=== PATIENT | male | born 1940 | race Caucasian/White ===

== ENCOUNTER 2017-11-03 20:33 | Emergency (ER) | payer MEDICARE ==
[2017-11-03 22:53] LABS: Bilirubin Negative (Negative); Blood, Urine Trace (Negative); Clarity CLEAR (Clear); Glucose, Urine (Dipstick) Negative (Negative); Leukocyte Negative (Negative); Nitrite Negative (Negative); Protein, Urine (Dipstick) 100 mg/dL (Neg-Trace); Specific Gravity, Urine 1.012 (1.002-1.036); Urobilinogen 0.2 mg/dL (0.2-1.0)
[2017-11-03 22:54] LABS: Bacteria/HPF None Seen HPF (None Seen); Hyaline Casts/LPF 0-3 HYALINE CAST LPF (0-3 Hyaline); RBC/HPF 0-3 HPF (0-3); Squamous Epithelial 0-3 HPF (0-3)
--- NOTE | 2017-11-03 23:40 | CT ---
CT CHEST WITHOUT CONTRAST: 11/03/17 Multiple axial tomograms obtained through the chest without IV enhancement. HISTORY: Fall earlier today. Chest pain. FINDINGS: The lungs are well aerated and are clear. No evidence of pneumothorax, effusion, or infiltrate. There is cardiomegaly. Mild vascular engorgement. Bony thorax appears intact. There are degenerative toussaint es in the spine without evidence of vertebral body compression or fracture. Severe degenerative changes at the left shoulder noted with severe subchondral cystic changes and hyp ertrophic changes at this joint. There are also extraosseous soft tissue calcifications surrounding t his joint. IMPRESSION: No acute chest finding. There are degenerative changes in the spine and left shoulder as described. POS: [facility]
--- NOTE | 2017-11-03 23:43 | CT ---
CT PELVIS: 11/03/17 Multiple axial tomograms obtained through the pelvis with multiplanar reconstruction. HISTORY: Fall. Pelvic pain. FINDINGS: There are bilateral hip prostheses. The bones are osteopenic. There is no evidence of acute pelvic or hip fracture identified. No soft tissue abnormality. Dialysis catheter is coiled within the lower ab domen. There is severe degenerative changes in the lower lumbar spine and lumbosacral region with grade I sp ondylolisthesis at L5-S1 and posterior spondylolysis at this level. IMPRESSION: Degenerative changes and postoperative changes as described above. No acute fracture identified. POS: [facility]
[2017-11-04] MEDS ORDERED: traMADol HCl 50 MG TAB ONE (00:09)
[2017-11-04] MEDS ORDERED: Ciprofloxacin 500 MG TAB ONE (00:46)
[2017-11-04 01:13] LABS: #Eosinphils 0.2 thou/uL (0.0-0.7); #Lymphocytes 0.8 thou/uL (1.20-3.40); #Monocytes 0.7 thou/uL (0.11-0.59); #Neutrophils 4.3 thou/uL (1.40-6.50); %Basophils 0.2 % (0.0-1.0); %Eosinophils 3.4 % (0.0-10.0); %Lymphocytes 12.7 % (21.0-51.0); %Monocytes 11.9 % (0.0-10.0); %Neutrophils 71.8 % (42.0-75.0); Hemoglobin 9.2 g/dL (14.0-18.0); Mean Corpuscular HGB CONC 32.8 g/dL (32.0-36.0); Mean Corpuscular Hemoglobin 31.8 pg (27.0-31.0); Mean Corpuscular Volume 96.8 fl (80.0-94.0); Mean Platelet Volume 9.8 fL (7.4-10.4); Platelet Count 130 thou/uL (130-400); RBC Distribution Width 15.7 % (11.5-14.5); Red Blood Cell (RBC) Count 2.89 mill/uL (4.70-6.10)
[2017-11-04 01:33] LABS: ALT (SGPT) Less than 7 U/L (8-55); AST (SGOT) 11 U/L (5-34); Albumin 3.8 g/dL (3.4-4.8); Alkaline Phosphatase 84 U/L (40-150); Anion Gap 16 mmol/L (10-20); BUN (Urea Nitrogen) 44 mg/dL (8.4-25.7); Bilirubin, Total 0.6 mg/dL (0.2-1.2); Calc. Creatinine Clearance 0 mL/min (70-130); Calcium 8.6 mg/dL (7.8-10.44); Carbon Dioxide 30 mmol/L (23-31); Chloride 100 mmol/L (98-107); Estimated GFR-MDRD 12; Globulin 2.4 g/dL (2.4-3.5); Glucose 76 mg/dL (83-110); Protein, Total 6.2 g/dL (5.8-8.1); Sodium 142 mmol/L (136-145)
== END 2017-11-04 03:30 ==
LOC: ERS 20:33
DX: S00.83XA Contusion of other part of head, initial encounter (principal); F32.9 Major depressive disorder, single episode, unspecified; N18.6 End stage renal disease; G20 Parkinson's disease; M43.10 Spondylolisthesis, site unspecified; Z91.81 History of falling; Z99.2 Dependence on renal dialysis; W19.XXXA Unspecified fall, initial encounter
CPT/HCPCS: 36415; 71250; 72192; 80053; 81003; 81015; 85025; 87086; 93005

== ENCOUNTER 2017-11-06 11:02 | Emergency (ER) | payer MEDICARE ==
[2017-11-06] MEDS ORDERED: Lidocaine 1% w/Epinephrine 1:100K 20 ML VIAL ONE (13:01)
[2017-11-06 13:20] LABS: #Eosinphils 0.2 thou/uL (0.0-0.7); #Lymphocytes 0.7 thou/uL (1.20-3.40); #Monocytes 0.7 thou/uL (0.11-0.59); #Neutrophils 4.3 thou/uL (1.40-6.50); %Eosinophils 3.7 % (0.0-10.0); %Lymphocytes 11.2 % (21.0-51.0); %Monocytes 11.7 % (0.0-10.0); %Neutrophils 73.4 % (42.0-75.0); Hemoglobin 7.5 g/dL (14.0-18.0); Mean Corpuscular HGB CONC 31.4 g/dL (32.0-36.0); Mean Corpuscular Hemoglobin 31.2 pg (27.0-31.0); Mean Corpuscular Volume 99.3 fl (80.0-94.0); Mean Platelet Volume 9.5 fL (7.4-10.4); Platelet Count 112 thou/uL (130-400); RBC Distribution Width 15.5 % (11.5-14.5); White Blood Cell (WBC) Count 5.8 thou/uL (4.8-10.8)
--- NOTE | 2017-11-06 13:40 | RAD ---
AP RADIOGRAPH OF PELVIS: Date: 11/06/17 HISTORY: Post fall today. This is the 6th time patient has fallen this month. 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 The distal portions of each femoral component are not image d on this exam. No hardware complication is seen on this exam. No fracture or dislocation is apprecia sanjeev. A radiopaque catheter overlies the pelvis, probably related to a peritoneal dialysis shunt. IMPRESSION: Bilateral total hip prosthesis without an acute osseous abnormality seen involving the pelvis. POS: [facility]
[2017-11-06 13:42] LABS: ALT (SGPT) Less than 7 U/L (8-55); AST (SGOT) 12 U/L (5-34); Albumin 3.4 g/dL (3.4-4.8); Alkaline Phosphatase 82 U/L (40-150); Anion Gap 12 mmol/L (10-20); BUN (Urea Nitrogen) 53 mg/dL (8.4-25.7); Bilirubin, Total 0.5 mg/dL (0.2-1.2); Calc. Creatinine Clearance 0 mL/min (70-130); Calcium 8.2 mg/dL (7.8-10.44); Carbon Dioxide 28 mmol/L (23-31); Chloride 100 mmol/L (98-107); Estimated GFR-MDRD 11; Globulin 2.1 g/dL (2.4-3.5); Glucose 87 mg/dL (83-110); Magnesium 2.2 mg/dL (1.6-2.6); Potassium 4.3 mmol/L (3.5-5.1); Protein, Total 5.5 g/dL (5.8-8.1); Sodium 136 mmol/L (136-145); Troponin I 0.024 ng/mL (< 0.028)
--- NOTE | 2017-11-06 13:43 | RAD ---
RADIOGRAPH CHEST 1 VIEW: Date: 11/06/17 Time: 1142 HOURS HISTORY: 77-year-old male status post acute fall resulting in left rib pain. COMPARISON: No prior chest radiographs. FINDINGS: This is a supine view, which would be insensitive for pneumothorax detection. There is a right healthcare administration intern al jugular double lumen dialysis catheter with distal tip overlying the right atrium. There lungs are hypoinflated. No gross consolidation or pulmonary edema identified. Ectasia and tortuous of the thor acic aorta. Cardiomegaly. Very severe DJD of left shoulder. IMPRESSION: 1. No acute findings. 2. 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 3. Right-sided dialysis catheter. 4. Hypoinflated lungs, making this a limited study. TITUS [] POS: [facility]
[2017-11-06 13:50] LABS: CKMB 7.4 ng/mL (0-6.6)
--- NOTE | 2017-11-06 13:50 | CT ---
CT BRAIN NONCONTRAST: HISTORY: 77-year-old male status post acute head trauma from fall. FINDINGS: There is no midline shift or any other mass effect. There is no evidence of acute intracranial hemor rhage, large cortical infarct, obstructive hydrocephalus, or extraaxial fluid collection. The calvar ium is intact. 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 A 1 cm hyperdense soft tissue density mass in the left anterior parasagittal frontal scalp. It is uncertain whether this represents a small acute scalp con tusion or a chronic subcutaneous lesion. High density fluid level in the sphenoid sinus which could r epresent blood. IMPRESSION: No acute intracranial findings. jn [] POS: [facility]
--- NOTE | 2017-11-06 14:00 | CT ---
CT CERVICAL SPINE NONCONTRAST: Date: 11/06/17 HISTORY: 77-year-old male status post acute cervical trauma from fall. FINDINGS: There are very severe degenerative disc changes at C2-3, C3-4, C4-5, C6-7, and T1-2; and especially a t the right atlantoaxial joint. These severe degenerative changes at the right atlantoaxial joint, pl us the patient motion artifact at the cervicothoracic junction, could result in a missed acute fractu re. No definite acute fracture is identified. There are moderate to severe degenerative changes at th e contralateral left atlantoaxial joint. There are severe degenerative facet changes at multiple leve ls bilaterally, especially the left upper and mid cervical spine. There is ankylosis of the C7 and T1 vertebral bodies and facet joints. The ankylosis stabilizes a Grade II anterolisthesis of C7 on T1. There is multilevel high grade central spinal canal stenosis and high grade bilateral neural foramina l stenosis. There are multiple bilateral thyroid nodules, right larger than left. IMPRESSION: 1. No definite acute, traumatic fracture identified. 2. Very severe cervical spondylosis. 3. Chronic Grade 2 spondylolisthesis at C7-T1, stabilized by ankylosis. TITUS Joens POS: [facility]
== END 2017-11-06 15:06 ==
LOC: ERS 11:02
DX: S51.812A Laceration without foreign body of left forearm, initial encounter (principal); S61.512A Laceration without foreign body of left wrist, initial encounter; S00.03XA Contusion of scalp, initial encounter; R29.6 Repeated falls; F32.9 Major depressive disorder, single episode, unspecified; N18.6 End stage renal disease; Z99.2 Dependence on renal dialysis; W17.89XA Other fall from one level to another, initial encounter
CPT/HCPCS: 12004; 36415; 70450; 71045; 72125; 72170; 80053; 82553; 83735; 84484; 85025; J2001

== ENCOUNTER 2022-12-15 11:30 | Inpatient (IN) | payer MEDICARE ==
[2022-12-15 12:30] LABS: #Eosinphils 0.1 thou/uL (0.0-0.7); #Lymphocytes 0.8 thou/uL (1.20-3.40); #Monocytes 0.6 thou/uL (0.11-0.59); #Neutrophils 3.7 thou/uL (1.40-6.50); %Basophils 0.2 % (0.0-1.0); %Eosinophils 1.4 % (0.0-10.0); %Lymphocytes 15.5 % (21.0-51.0); %Monocytes 11.3 % (0.0-10.0); %Neutrophils 71.6 % (42.0-75.0); Hemoglobin 7.3 g/dL (14.0-18.0); Mean Corpuscular Hemoglobin 36.5 pg (27.0-31.0); Platelet Count 134 10x3/uL (130-400); RBC Distribution Width 16.5 % (11.5-14.5); White Blood Cell (WBC) Count 5.2 10x3/uL (4.8-10.8)
[2022-12-15] MEDS ORDERED: Cefepime 2 GM VIAL ONE (12:52)
[2022-12-15 12:58] LABS: ALT (SGPT) Less than 7 U/L (8-55); AST (SGOT) 13 U/L (5-34); Albumin 2.9 g/dL (3.4-4.8); Alkaline Phosphatase 94 U/L (40-110); Anion Gap 16 mmol/L (10-20); BUN (Urea Nitrogen) 27 mg/dL (8.4-25.7); Bilirubin, Total 0.5 mg/dL (0.2-1.2); Calc. Creatinine Clearance 0 mL/min (70-130); Calcium 9.2 mg/dL (7.8-10.44); Carbon Dioxide 30 mmol/L (23-31); Chloride 99 mmol/L (98-107); Estimated GFR 15; Globulin 2.5 g/dL (2.4-3.5); Glucose 101 mg/dL (83-110); Potassium 3.7 mmol/L (3.5-5.1); Protein, Total 5.4 g/dL (5.8-8.1); Sodium 141 mmol/L (136-145)
[2022-12-15] MEDS ORDERED: Acetaminophen 325 MG TAB PO PRN (13:16)
[2022-12-15] MEDS ORDERED: Ondansetron ODT 4 MG TAB PO PRN (13:16)
[2022-12-15] MEDS ORDERED: Acetaminophen 650 MG Suppository PR PRN (13:16)
[2022-12-15 13:22] LABS: Actual Bicarbonate (HCO3v) 34 mEq/L (22-28); Base Excess 9.6 mEq/L (-2.0 to +3.0); Calcium, Ionized (venous) 1.08 mmol/L (1.16-1.32); Chloride (VBG) 97 mmol/L (98-106); Potassium (VBG) 3.68 mmol/L (3.70-5.30); pH (venous) 7.49 (7.32-7.43)
[2022-12-15] MEDS ORDERED: Vancomycin 1 GM/200 ML (FROZEN) BAG ONE (13:45)
[2022-12-15 14:07] LABS: CKMB 3.6 ng/mL (0-6.6)
[2022-12-15 14:29] LABS: SARS-CoV-2 NAA Rapid Test Not Detected (NotDetected)
[2022-12-15] MEDS ORDERED: Heparin 5,000 UNITS/ML VIAL SC SCH (15:00)
[2022-12-15 15:07] LABS: Iron 47 ug/dL (65-175); Iron Binding Capacity, Total 154 mcg/dL (261-462)
[2022-12-15 16:28] VITALS: BMI 30.7
[2022-12-15] MEDS ORDERED: EPOETIN ALFA-EPBX (ESRD) 10,000 UNIT/ML VIAL SC SCH (19:30)
[2022-12-15] MEDS: Heparin 5,000 UNITS/ML VIAL SC SCH (20:39)
[2022-12-15] MEDS: cefTRIAXone\\ROCEPHIN 1 GM in Sodium Chloride 0.9% 100 ML IVPB SCH (20:39)
[2022-12-16 05:02] LABS: #Eosinphils 0.1 thou/uL (0.0-0.7); #Lymphocytes 1.1 thou/uL (1.20-3.40); #Monocytes 0.6 thou/uL (0.11-0.59); #Neutrophils 4.6 thou/uL (1.40-6.50); %Basophils 0.4 % (0.0-1.0); %Eosinophils 1.5 % (0.0-10.0); %Monocytes 9.7 % (0.0-10.0); %Neutrophils 71.4 % (42.0-75.0); Mean Corpuscular HGB CONC 32.4 g/dL (32.0-36.0); Mean Platelet Volume 8.2 fL (7.4-10.4); Platelet Count 156 10x3/uL (130-400); RBC Distribution Width 16.2 % (11.5-14.5); Red Blood Cell (RBC) Count 2.22 mill/uL (4.70-6.10); White Blood Cell (WBC) Count 6.4 10x3/uL (4.8-10.8)
[2022-12-16 05:14] LABS: Anion Gap 16 mmol/L (10-20); BUN (Urea Nitrogen) 34 mg/dL (8.4-25.7); Calc. Creatinine Clearance 13 mL/min (70-130); Calcium 9.7 mg/dL (7.8-10.44); Carbon Dioxide 30 mmol/L (23-31); Chloride 97 mmol/L (98-107); Estimated GFR 12; Glucose 73 mg/dL (83-110); Potassium 3.9 mmol/L (3.5-5.1); Sodium 139 mmol/L (136-145)
[2022-12-16 05:22] LABS: Phosphorus 4.1 mg/dL (2.3-4.7)
[2022-12-16] MEDS ORDERED: Sevelamer Carbonate 800 MG TAB PO SCH (08:00)
[2022-12-16] MEDS: Folic Acid/Vit B Comp W-C PO SCH (08:58)
[2022-12-16] MEDS: Sevelamer Carbonate 800 MG TAB PO SCH ×3 (08:58→17:36)
[2022-12-16] MEDS: Senokot 8.6 MG TAB PO SCH ×2 (08:58→21:14)
[2022-12-16] MEDS: Polyethylene Glycol 3350 17 GM Packet PO SCH (08:58)
[2022-12-16] MEDS: Cyanocobalamin (Vitamin B-12) 1,000 MCG TAB PO SCH (08:58)
[2022-12-16] MEDS: Zinc Sulfate 220 MG CAP PO SCH (08:59)
[2022-12-16] MEDS: Ascorbic Acid 500 mg Chewable Tablet PO SCH ×2 (08:59→21:08)
[2022-12-16] MEDS: Carvedilol 6.25 MG TAB PO SCH ×2 (08:59→21:08)
[2022-12-16] MEDS: Cholecalciferol 1,000 UNITS (25 MCG) TAB PO SCH (09:00)
[2022-12-16] MEDS ORDERED: Non-Formulary Item 1 EACH (Argin/Glut/Cahmb/Collag/Mv-Min [Juven Packet] 1 EACH Powd.Pack PO SCH (09:00)
[2022-12-16] MEDS: Venlafaxine HCl XR 75 MG CAP PO SCH ×2 (09:00→11:19)
[2022-12-16] MEDS: Calcitriol 0.25 MCG CAP PO SCH (09:00)
[2022-12-16] MEDS: Heparin 5,000 UNITS/ML VIAL SC SCH ×3 (09:00→21:09)
[2022-12-16 10:25] LABS: HBSAg Index 0.21 S/CO (0-0.99); Hep B Core Total Ab Non-Reactive (NonReactive); Hep B Core Total Index 0.07 S/CO (0-0.79); Hep B Surf Ag Non-Reactive S/CO (NonReactive); Hep C IgG Ab Non-Reactive (NonReactive); Hep C Index 0.14 S/CO (0-0.79)
[2022-12-16 10:29] LABS: HBSAB Concentration 84.88 mIU/mL; Hep B Surf AB Reactive (NonReactive)
[2022-12-16] MEDS: Carbidopa/Levodopa 25-250 mg Tablet PO SCH ×3 (11:19→21:09)
[2022-12-16] MEDS: Venlafaxine XR 37.5 MG CAP PO SCH (11:19)
[2022-12-16] MEDS ORDERED: Heparin 10,000 UNITS/ 10 ML VIAL ONE (15:33)
[2022-12-16] MEDS: clonazePAM 1 MG TAB PO SCH (21:09)
[2022-12-16] MEDS: cefTRIAXone\\ROCEPHIN 1 GM in Sodium Chloride 0.9% 100 ML IVPB SCH (21:14)
[2022-12-17] MEDS: Heparin 5,000 UNITS/ML VIAL SC SCH ×3 (08:26→20:32)
[2022-12-17] MEDS: Sevelamer Carbonate 800 MG TAB PO SCH ×3 (08:27→16:55)
[2022-12-17] MEDS: Polyethylene Glycol 3350 17 GM Packet PO SCH (08:27)
[2022-12-17] MEDS: Calcitriol 0.25 MCG CAP PO SCH (08:27)
[2022-12-17] MEDS: Folic Acid/Vit B Comp W-C PO SCH (08:27)
[2022-12-17] MEDS: Venlafaxine HCl XR 75 MG CAP PO SCH (08:27)
[2022-12-17] MEDS: Carvedilol 6.25 MG TAB PO SCH ×2 (08:28→20:30)
[2022-12-17] MEDS: Senokot 8.6 MG TAB PO SCH (08:28)
[2022-12-17] MEDS: Venlafaxine XR 37.5 MG CAP PO SCH (08:29)
[2022-12-17] MEDS: Cyanocobalamin (Vitamin B-12) 1,000 MCG TAB PO SCH (08:29)
[2022-12-17] MEDS: Cholecalciferol 1,000 UNITS (25 MCG) TAB PO SCH (08:30)
[2022-12-17] MEDS: Ascorbic Acid 500 mg Chewable Tablet PO SCH ×2 (08:30→20:30)
[2022-12-17] MEDS: Zinc Sulfate 220 MG CAP PO SCH (08:31)
[2022-12-17 08:54] LABS: Anion Gap 13 mmol/L (10-20); BUN (Urea Nitrogen) 21 mg/dL (8.4-25.7); Calc. Creatinine Clearance 18 mL/min (70-130); Calcium 9.4 mg/dL (7.8-10.44); Carbon Dioxide 30 mmol/L (23-31); Chloride 99 mmol/L (98-107); Estimated GFR 16; Glucose 70 mg/dL (83-110); Potassium 3.7 mmol/L (3.5-5.1); Sodium 138 mmol/L (136-145)
[2022-12-17] MEDS ORDERED: Artificial Tear Sol 15 ML BOT EA EYE PRN (11:03)
[2022-12-17] MEDS ORDERED: Senokot S 8.6-50 MG TAB PO PRN (11:03)
[2022-12-17] MEDS ORDERED: Bisacodyl 10 MG SUPP PR PRN (11:03)
[2022-12-17] MEDS ORDERED: Moisturizing Cream (Eucerin) 113 GM JAR TOP PRN (11:03)
[2022-12-17] MEDS: Carbidopa/Levodopa 25-250 mg Tablet PO SCH ×3 (12:34→20:35)
[2022-12-17] MEDS: hydrALAZINE 25 MG TAB PO SCH ×2 (16:54→20:30)
[2022-12-17] MEDS: clonazePAM 1 MG TAB PO SCH (20:31)
[2022-12-17] MEDS: cefTRIAXone\\ROCEPHIN 1 GM in Sodium Chloride 0.9% 100 ML IVPB SCH (20:32)
[2022-12-18] MEDS ORDERED: traMADol HCl 50 MG TAB PO SCH (00:30)
[2022-12-18] MEDS: hydrOXYzine 10 MG TAB PO PRN ×2 (03:05→23:15)
[2022-12-18 08:46] LABS: Anion Gap 14 mmol/L (10-20); BUN (Urea Nitrogen) 33 mg/dL (8.4-25.7); Calc. Creatinine Clearance 13 mL/min (70-130); Calcium 9.8 mg/dL (7.8-10.44); Carbon Dioxide 29 mmol/L (23-31); Chloride 101 mmol/L (98-107); Estimated GFR 11; Glucose 94 mg/dL (83-110); Potassium 3.9 mmol/L (3.5-5.1); Sodium 140 mmol/L (136-145)
[2022-12-18] MEDS ORDERED: Heparin 10,000 UNITS/ 10 ML VIAL ONE (08:55)
[2022-12-18] MEDS ORDERED: Losartan 25 MG TAB PO SCH (09:00)
[2022-12-18] MEDS: Sevelamer Carbonate 800 MG TAB PO SCH ×3 (09:02→16:11)
[2022-12-18] MEDS: Folic Acid/Vit B Comp W-C PO SCH (09:02)
[2022-12-18] MEDS: Heparin 5,000 UNITS/ML VIAL SC SCH ×3 (09:03→20:41)
[2022-12-18] MEDS: hydrALAZINE 25 MG TAB PO SCH ×3 (11:59→20:40)
[2022-12-18] MEDS: Carbidopa/Levodopa 25-250 mg Tablet PO SCH ×3 (11:59→20:40)
[2022-12-18] MEDS: Ascorbic Acid 500 mg Chewable Tablet PO SCH ×2 (11:59→20:40)
[2022-12-18] MEDS: Carvedilol 6.25 MG TAB PO SCH ×2 (11:59→20:40)
[2022-12-18 12:13] LABS: Hemoglobin 8.7 g/dL (14.0-18.0); Platelet Count 139 10x3/uL (130-400)
[2022-12-18] MEDS: Cholecalciferol 1,000 UNITS (25 MCG) TAB PO SCH (15:07)
[2022-12-18] MEDS: Calcitriol 0.25 MCG CAP PO SCH (15:08)
[2022-12-18] MEDS: Polyethylene Glycol 3350 17 GM Packet PO SCH (15:08)
[2022-12-18] MEDS: Cyanocobalamin (Vitamin B-12) 1,000 MCG TAB PO SCH (15:08)
[2022-12-18] MEDS: Zinc Sulfate 220 MG CAP PO SCH (15:08)
[2022-12-18] MEDS: Venlafaxine XR 37.5 MG CAP PO SCH (15:08)
[2022-12-18] MEDS: Venlafaxine HCl XR 75 MG CAP PO SCH (15:08)
[2022-12-18] MEDS: clonazePAM 1 MG TAB PO SCH (20:40)
[2022-12-18] MEDS: cefTRIAXone\\ROCEPHIN 1 GM in Sodium Chloride 0.9% 100 ML IVPB SCH (20:41)
[2022-12-19] MEDS: Polyethylene Glycol 3350 17 GM Packet PO SCH (08:03)
[2022-12-19] MEDS: Ascorbic Acid 500 mg Chewable Tablet PO SCH (08:04)
[2022-12-19] MEDS: Sevelamer Carbonate 800 MG TAB PO SCH (08:04)
[2022-12-19] MEDS: Calcitriol 0.25 MCG CAP PO SCH (08:04)
[2022-12-19] MEDS: Carbidopa/Levodopa 25-250 mg Tablet PO SCH (08:05)
[2022-12-19] MEDS: Cyanocobalamin (Vitamin B-12) 1,000 MCG TAB PO SCH (08:05)
[2022-12-19] MEDS: Venlafaxine XR 37.5 MG CAP PO SCH (08:06)
[2022-12-19] MEDS: Zinc Sulfate 220 MG CAP PO SCH (08:06)
[2022-12-19] MEDS: Carvedilol 6.25 MG TAB PO SCH (08:06)
[2022-12-19] MEDS: Venlafaxine HCl XR 75 MG CAP PO SCH (08:06)
[2022-12-19] MEDS: Heparin 5,000 UNITS/ML VIAL SC SCH (08:06)
[2022-12-19] MEDS: Folic Acid/Vit B Comp W-C PO SCH (08:06)
[2022-12-19] MEDS: Cholecalciferol 1,000 UNITS (25 MCG) TAB PO SCH (08:06)
[2022-12-19] MEDS: hydrALAZINE 25 MG TAB PO SCH (08:07)
[2022-12-19 08:31] LABS: Anion Gap 14 mmol/L (10-20); BUN (Urea Nitrogen) 22 mg/dL (8.4-25.7); Calc. Creatinine Clearance 19 mL/min (70-130); Calcium 8.8 mg/dL (7.8-10.44); Carbon Dioxide 28 mmol/L (23-31); Chloride 101 mmol/L (98-107); Estimated GFR 18; Glucose 65 mg/dL (83-110); Potassium 4.1 mmol/L (3.5-5.1); Sodium 139 mmol/L (136-145)
[2022-12-19 09:02] VITALS: BP 101/61; TEMP 98.5
[2022-12-22] MEDS ORDERED: EPOETIN ALFA-EPBX (ESRD) 10,000 UNIT/ML VIAL SC SCH (15:00)
== END 2022-12-19 11:32 | DRG 177 ==
LOC: ERS 11:30 → 2NO 15:12 → OBSVTOIN 12-16 08:00 → T4-A 12-17 15:46
PROVIDERS: ADMIT Family Medicine; ATTEND Family Medicine
PROC: 30233N1 Transfusion of Nonautologous Red Blood Cells into Peripheral Vein, Percutaneous Approach (ICD-10-PCS; principal; 2022-12-16)
PROC: 5A1D70Z Performance of Urinary Filtration, Intermittent, Less than 6 Hours Per Day (ICD-10-PCS; 2022-12-16)
DX: J69.0 Pneumonitis due to inhalation of food and vomit (principal); N18.6 End stage renal disease; I12.0 Hypertensive chronic kidney disease with stage 5 chronic kidney disease or end stage renal disease; N25.81 Secondary hyperparathyroidism of renal origin; D50.9 Iron deficiency anemia, unspecified; Z96.643 Presence of artificial hip joint, bilateral; Z20.822 Contact with and (suspected) exposure to COVID-19; E87.6 Hypokalemia; E83.39 Other disorders of phosphorus metabolism; D63.1 Anemia in chronic kidney disease; G20 Parkinson's disease; F02.80 Dementia in other diseases classified elsewhere, unspecified severity, without behavioral disturbance, psychotic disturbance, mood disturbance, and anxiety; E78.5 Hyperlipidemia, unspecified; I27.20 Pulmonary hypertension, unspecified; I34.0 Nonrheumatic mitral (valve) insufficiency; Z99.2 Dependence on renal dialysis; Z88.8 Allergy status to other drugs, medicaments and biological substances; Z79.899 Other long term (current) drug therapy
CPT/HCPCS: 36415; 36416; 36430; 71045; 74230; 80048; 82553; 82805; 83540; 83550; 83605; 83735; 83880; 83970; 84100; 84145; 84484; 85014; 85018; 85025; 85049; 86704; 86850; 86900; 86901; 87040; 87081; 90935; 93005; 93306; 96365; 96367; 96372; 96375; 97139; G0257; G0378; J0692; J0696; J1644; J1956; J3370-JW; J3490; P9016; Q5105